=== PATIENT | female | born 1975 | race Caucasian/White ===

== ENCOUNTER 2017-02-03 16:18 | Emergency (ER) | payer SELFPAY ==
[~2017-02-03] VITALS: Ht 162.6 cm; Wt 63.5 kg
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
[2017-02-03 17:31] LABS: BILIRUBIN,URINE NEGATIVE (NEG); GLUCOSE,URINE NEGATIVE (NEG); NITRITE,URINE POSITIVE (NEG); PROTEIN,URINE NEGATIVE (NEG-TRACE); UROBILINOGEN,URINE 0.2 mg/dL (0.2 mg/dL)
[2017-02-03 17:38] LABS: BARBITURATES NEG (NEG); BENZODIAZEPINES NEG (NEG); CANNABINOIDS NEG (NEG); COCAINE NEG (NEG); METHADONE NEG (NEG); OPIATES NEG (NEG); PHENCYCLIDINE NEG (NEG)
[2017-02-03 17:46] LABS: BACTERIA,URINE 0 /HPF (0-FEW); RBC,URINE 0 /HPF (0-2); WBC,URINE 0 /HPF (0-4)
--- NOTE | 2017-02-03 18:28 | RAD ---
CT HEAD AND CERVICAL SPINE WO Clinical indications: fall,head and neck pain, COMPARISON: Head CT dated September 23, 2012. NONCONTRAST HEAD CT Technique: Noncontrast axial cross sectional scanning of the head was performed. PQRS compliance Statement One or more of the following individualized dose reduction techniques were utilized for the studies: 1. Automated exposure control 2. Adjustment of the mA and/or kV according to patient size 3. Use of iterative reconstruction technique Findings: No acute intracranial hemorrhage or midline shift or mass-effect or hydrocephalus or extra-axial fluid collection is seen. No focal hypodense area or sulci effacement is seen to indicate an acute infarct or edema radiographically. No skull fracture or pneumocephalus is seen. No opacification of the mastoid sinuses or the paranasal sinuses is seen. The maxillary sinuses are not completely seen in this study. Impression: No acute intracranial abnormality is seen. CERVICAL SPINE CT WITHOUT CONTRAST TECHNIQUE: Noncontrast helical CT scanning of the cervical spine was performed. Multiplanar 2-D reconstructions were generated. FINDINGS: No acute fracture or anterolisthesis or discitis or osteolytic process or prevertebral soft tissue swelling is evident. IMPRESSION: No acute fracture. Electronically signed by: Ramon Morales MD (02/03/2017 6:24 PM)
[2017-02-03 18:34] VITALS: BP 115/55
[2017-02-03] MEDS ORDERED: HYDR-971 PO (18:37)
[2017-02-03] MEDS ORDERED: HYDROcodone/APAP 5/325MG 1 TAB TABLET PO ONE (18:45)
== END 2017-02-03 18:50 | disposition home or self-care (01) ==
LOC: ER 16:18
DX: M54.2 Cervicalgia (principal); R51 Headache; Z88.1 Allergy status to other antibiotic agents; Z88.5 Allergy status to narcotic agent; Z88.2 Allergy status to sulfonamides; Z88.6 Allergy status to analgesic agent; Y08.89XA Assault by other specified means, initial encounter; Y93.89 Activity, other specified; Y92.89 Other specified places as the place of occurrence of the external cause; Y99.8 Other external cause status
CPT/HCPCS: 70450; 72125; 80305; 80320; 81001; 81025; 87086; G0481; 99285-25

== ENCOUNTER 2019-03-26 15:54 | Emergency (ER) | payer SELFPAY ==
[~2019-03-26] VITALS: Ht 162.6 cm; Wt 56.7 kg
[~2019-03-26 15:54] MED LIST: HYDR-3164 PO
[2019-03-26 16:20] VITALS: BP 100/64
[2019-03-26] MEDS ORDERED: NYST15PO9 TP (17:12)
[2019-03-26] MEDS ORDERED: CLIN150C14 PO (17:12)
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
[2019-03-26] MEDS ORDERED: NYSTATIN TOPICAL POWDER 15GM BOTTLE. TP STA (17:21)
== END 2019-03-26 17:30 | disposition home or self-care (01) ==
LOC: ER 15:54
DX: L03.111 Cellulitis of right axilla (principal); B37.2 Candidiasis of skin and nail; E03.9 Hypothyroidism, unspecified; G89.29 Other chronic pain; Z88.1 Allergy status to other antibiotic agents; Z88.2 Allergy status to sulfonamides; Z88.5 Allergy status to narcotic agent; Z88.6 Allergy status to analgesic agent
CPT/HCPCS: 99283

== ENCOUNTER 2021-03-23 19:44 | Emergency (ER) | payer SELFPAY ==
[~2021-03-23] VITALS: Ht 160 cm; Wt 65.0 kg
[~2021-03-23 19:44] MED LIST changes: +CLIN150C15 PO; +NYST15PO9 TP
[2021-03-23] MEDS ORDERED: ACETAMINOPHEN 500 MG TABLET PO ONE (20:30)
[2021-03-23 20:40] LABS: BACTERIA,URINE MANY /HPF (0-FEW); BILIRUBIN,URINE NEGATIVE (NEG); CLARITY,URINE HAZY; COLOR,URINE YELLOW; NITRITE,URINE NEGATIVE (NEG); PH,URINE 6.5 (<5.0-8.0); PROTEIN,URINE TRACE mg/dL (NEG-TRACE); RBC,URINE 0 /HPF (0-2); WBC,URINE 20-40 /HPF (0-4)
[2021-03-23] MEDS ORDERED: LIDOCAINE (700MG/PATCH) PATCH. TD SCH (21:37)
[2021-03-23] MEDS ORDERED: HYDROmorphone 2 MG/ML VIAL IM ONE (21:45)
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
[2021-03-23 21:55] VITALS: BP 94/54
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
[2021-03-23] MEDS ORDERED: LIDO1ADH78 TP (22:50)
[2021-03-23] MEDS ORDERED: HYDR-2761 PO (22:52)
--- NOTE | 2021-03-23 22:52 | RAD ---
Exam: CT of chest without contrast INDICATION: Question rib fracture TECHNIQUE: Sequential axial images through the chest obtained without IV contrast. Sagittal and coron al reformatted images were reconstructed from the axial data and reviewed. Exposure: One or more of the following in the visualized dose reduction techniques were utilized for this examination: 1. Automated exposure control 2. Adjustment of the MA and/or KV according to patient size 3. Use of iterative of reconstructive technique Comparisons: X-ray same day FINDINGS: Visualized portions of the thyroid are unremarkable. No enlarged mediastinal lymph nodes are identifi ed. Heart size is normal. No pericardial effusion. Thoracic aorta has a normal course and caliber. Pulmon patti artery is not enlarged. Airways are patent. No consolidation or pneumothorax. No suspicious lung nodules. Strandy opacities t he dependent portion lungs likely representing atelectasis. No pleural effusion or thickening. Visualized upper abdomen is unremarkable. Mildly displaced fracture involving the right lateral fifth rib. Nondisplaced fracture involving the posterior right eighth rib. IMPRESSION: 1. Mildly displaced fracture of the right lateral fifth rib. 2. Nondisplaced fracture involving the posterior right eighth rib. 3. Bibasilar strandy opacities likely atelectasis. Electronically signed by: Nick Vogt MD (03/23/2021 10:49 PM) [facility]
--- NOTE | 2021-03-23 22:55 | RAD ---
Exam: CT left ankle without contrast INDICATION: Possible fracture TECHNIQUE: Sequential axial images through the left ankle obtained without IV contrast. Sagittal and coronal reformatted images were reconstructed from the axial data and reviewed. Exposure: One or more of the following in the visualized dose reduction techniques were utilized for this examination: 1. Automated exposure control 2. Adjustment of the MA and/or KV according to patient size 3. Use of iterative of reconstructive technique Comparisons: Radiograph same day FINDINGS: There is a nondisplaced vertically oriented fracture through the talus extending into the talocalcane al joint. No other fractures are identified. This subcutaneous stranding surrounding the ankle. Joint spaces are otherwise well-maintained. No complete tear of the Achilles tendon. IMPRESSION: Nondisplaced vertically oriented fracture to the talus extending into the talocalcaneal joint. Electronically signed by: Nick Vogt MD (03/23/2021 10:53 PM) [facility]
== END 2021-03-23 23:14 | disposition home or self-care (01) ==
LOC: ER 19:44
DX: S22.31XA Fracture of one rib, right side, initial encounter for closed fracture (principal); S92.102A Unspecified fracture of left talus, initial encounter for closed fracture; E03.9 Hypothyroidism, unspecified; Z72.0 Tobacco use; W17.89XA Other fall from one level to another, initial encounter; Y93.89 Activity, other specified; Y92.89 Other specified places as the place of occurrence of the external cause; Y99.8 Other external cause status
CPT/HCPCS: 29515; 71111; 71250; 73590; 73610; 73630; 73700; 81001; 81025; 87086; 96372; 99285; J1170